=== PATIENT | male | born 1950 | race Caucasian/White ===

== ENCOUNTER → 2019-08-23 | Outpatient (CLI) | payer MEDICARE, OTHER ==
--- NOTE | 2019-08-23 11:55 | Diagnostic Imaging Report ---
INDICATION: Back pain. EXAMINATION: Thoracic spine. FINDINGS: AP and lateral views of the thoracic spine show bridging osteophytes across 6 levels of the mid thoracic spine. The alignment is normal. There are no compression fractures. The disc spaces are well-maintained. IMPRESSION: Diffuse idiopathic skeletal hyperostosis. No acute abnormality is seen. Dictated by: Dictated on workstation # [id number]
--- NOTE | 2019-08-23 11:56 | Diagnostic Imaging Report ---
INDICATION: Left shoulder pain, neck injury. EXAMINATION: Cervical spine. FINDINGS: AP and lateral views of the cervical spine show normal alignment. There are no compression fractures. There is slight disc space narrowing at C5-6 and C7-T1. The other intervertebral disc spaces are normal. There is no fracture or prevertebral soft tissue swelling. IMPRESSION: There are some degenerative disc changes at C5-6 and C7-T1. There is no acute abnormality seen. Dictated by: Dictated on workstation # [id number]
== END ==
LOC: RAD 10:42
PROVIDERS: ATTEND Nurse Practitioner Family
DX: M50.33 Other cervical disc degeneration, cervicothoracic region (principal); M48.14 Ankylosing hyperostosis [Forestier], thoracic region
CPT/HCPCS: 72040; 72072

== ENCOUNTER → 2021-05-04 | Outpatient (CLI) | payer MEDICARE, OTHER ==
--- NOTE | 2021-05-04 09:50 | Diagnostic Imaging Report ---
INDICATION: Preop evaluation for shoulder surgery. PA and lateral chest obtained at 0914 a.m. Heart and mediastinal silhouette are normal in appearance. The lungs are clear. There is no pneumothorax or pleural fluid. IMPRESSION: No acute process in the chest. Dictated by: Dictated on workstation # [id number]
== END ==
LOC: CARD 08:54
PROVIDERS: ATTEND Nurse Practitioner Family
DX: Z01.818 Encounter for other preprocedural examination (principal)
CPT/HCPCS: 71046; 93005

== ENCOUNTER → 2022-01-02 | Outpatient (CLI) | payer MEDICARE, OTHER ==
--- NOTE | 2022-01-02 10:44 | Diagnostic Imaging Report ---
PROCEDURE: US Renal Bilateral. TECHNIQUE: Multiple real-time grayscale images were obtained over the kidneys in various projections bilaterally. INDICATION: Renal cysts. Correlation is made with renal ultrasound from 10/07/2012. Right kidney measures 13.3 x 5.4 x 6.8 cm and the left kidney measures 11.8 x 5.7 x 5.0 cm. Both kidneys contain multiple cysts. The largest cyst on the right is in the lower pole measuring 4.6 x 4.9 x 4.9 cm. Largest cyst on the left is in the lower pole measuring 1.5 x 1.2 x 1.3 cm. No definite solid lesions are seen. No calculi or hydronephrosis is detected. Images of the urinary bladder unremarkable. Bilateral ureteral jets are visualized. IMPRESSION: Bilateral simple appearing renal cysts, largest on the right. No solid renal mass or evidence of hydronephrosis is detected. Dictated by: Dictated on workstation # [id number]
== END ==
LOC: RAD 09:02
PROVIDERS: ATTEND Nurse Practitioner Family
DX: N28.1 Cyst of kidney, acquired (principal)
CPT/HCPCS: 76770

== ENCOUNTER → 2022-04-29 | Outpatient (CLI) | payer MEDICARE, OTHER ==
[2022-04-29 15:08] LABS: HEMATOCRIT 48 % (40-54); HEMOGLOBIN 15.9 g/dL (13.3-17.7); MEAN CORPUSCULAR HEMOGLOBIN 30 pg (25-34); MEAN CORPUSCULAR HGB CONC 34 g/dL (32-36); MEAN CORPUSCULAR VOLUME 89 fL (80-99); MEAN PLATELET VOLUME 8.9 fL (9.0-12.2); PLATELET COUNT 220 10^3/uL (130-400); WHITE BLOOD COUNT 6.5 10^3/uL (4.3-11.0)
[2022-04-29 15:19] LABS: ALBUMIN 4.2 GM/DL (3.2-4.5)
[2022-04-29 15:20] LABS: POTASSIUM 4.2 MMOL/L (3.6-5.0)
[2022-04-29 15:21] LABS: CALCIUM 9.5 MG/DL (8.5-10.1)
[2022-04-29 15:22] LABS: TOTAL PROTEIN 7.2 GM/DL (6.4-8.2)
[2022-04-29 15:24] LABS: BILIRUBIN,TOTAL 0.4 MG/DL (0.1-1.0)
[2022-04-29 15:26] LABS: CREATININE SERUM 1.27 MG/DL (0.60-1.30); PROTHROMBIN TIME PATIENT 13.4 SEC (12.2-14.7)
[2022-04-29 15:30] LABS: ERYTHROCYTE SEDIMENTATION RATE 4 MM/HR (0-30)
--- NOTE | 2022-04-29 19:28 | Diagnostic Imaging Report ---
INDICATION: Preop for shoulder surgery PA and lateral chest obtained at 0243 p.m. and compared to 05/04/2021. Heart and mediastinal silhouette are normal in appearance. The lungs are clear. There is no pneumothorax or pleural fluid. IMPRESSION: Negative chest. Dictated by: Dictated on workstation # [id number]
== END ==
LOC: CARD 14:30
PROVIDERS: ATTEND Nurse Practitioner Family
DX: Z01.810 Encounter for preprocedural cardiovascular examination (principal)
CPT/HCPCS: 36415; 71046; 80053; 85027; 85610; 85652; 85730; 93005